=== PATIENT | female | born 2000 | race Asian ===

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

== ENCOUNTER 2019-02-09 07:55 | Emergency (ER) | payer BC | END 2019-02-09 08:47 | disposition home or self-care (01) | LOC: FTE 08:47 | DX: H66.93 Otitis media, unspecified, bilateral (principal); H10.9 Unspecified conjunctivitis | CPT/HCPCS: 99283 ==